=== PATIENT | female | born 1995 | race Caucasian/White ===

== ENCOUNTER 2022-04-08 14:14 | Observation (INO) | payer OTHER ==
[2022-04-08 15:00] VITALS: BP 118/59; PULSE 87; O2SAT 99
[2022-04-08 15:52] LABS: Appearance SLIGHTLY CLOUDY (CLEAR); Bilirubin NEGATIVE (NEGATIVE); Dipstick done @ ? MAIN LAB; Glucose NEGATIVE (NEGATIVE); Ketones NEGATIVE (NEGATIVE); Nitrite NEGATIVE (NEGATIVE); Ph 7.5 (5-6); Protein,Urine Dip NEGATIVE (Negative); RBC NEGATIVE Ery/ul (0-5); Specific Gravity 1.015 (1.005-1.025); Urobilinogen 0.2 mg/dL (0-1)
[2022-04-08 15:56] LABS: Bacteria RARE /HPF (NEGATIVE); Epithelial Cells RARE /HPF (FEW)
[2022-04-08 15:59] LABS: Urine Cultured Indicated? NO
--- NOTE | 2022-04-08 17:09 | XRAY ---
Indication: Pain. Evaluate cervical length. Limited transvaginal OB ultrasound demonstrates single intrauterine with heart rate 149 BPM. Closed cervix with cervical length 4.2 cm.
== END 2022-04-08 17:10 | disposition home or self-care (01) ==
LOC: OB 14:14
PROVIDERS: ADMIT Obstetrics & Gynecology; ATTEND Obstetrics & Gynecology
DX: Z34.82 Encounter for supervision of other normal pregnancy, second trimester (principal); Z3A.20 20 weeks gestation of pregnancy
CPT/HCPCS: 76815; 81015; G0378

== ENCOUNTER 2022-06-07 12:34 | Observation (INO) | payer OTHER ==
[2022-06-07 13:18] VITALS: BP 123/70; PULSE 99; O2SAT 98
[2022-06-07 14:33] LABS: Amphetamine,Urine NEGATIVE (NEGATIVE); Barbiturate,Urine NEGATIVE (NEGATIVE); Benzodiazepine,Urine NEGATIVE (NEGATIVE); Cocaine,Urine NEGATIVE (NEGATIVE); Methadone,Urine NEGATIVE (NEGATIVE); Opiate,Urine NEGATIVE (NEGATIVE); PCP,Urine NEGATIVE (NEGATIVE); THC,Urine NEGATIVE (NEGATIVE)
[2022-06-07] MEDS ORDERED: Dulcolax 10 MG SUPP PR ONE (15:25)
== END 2022-06-07 15:56 | disposition home or self-care (01) ==
LOC: OB 12:34
PROVIDERS: ADMIT Obstetrics & Gynecology; ATTEND Obstetrics & Gynecology
DX: Z34.83 Encounter for supervision of other normal pregnancy, third trimester (principal); Z3A.28 28 weeks gestation of pregnancy
CPT/HCPCS: 80307; G0378; A9270-GY

== ENCOUNTER 2022-08-04 20:34 | Observation (INO) | payer OTHER ==
[2022-08-04 21:15] LABS: Appearance Cloudy (Clear); Bacteria None Seen /HPF (None Seen); Bilirubin Negative (Negative); Blood Negative (Negative); Epithelial Cells None Seen /HPF (None Seen); Glucose, Urine Negative (Negative); Hyaline Casts NONE SEEN /LPF (0-2); Ketones Negative (Negative); Leukocyte Esterase Negative (Negative); Nitrite Negative (Negative); Protein,Urine Dip Negative (Negative); RBC 0-2 /HPF (0-5); Specific Gravity <=1.005 (1.005-1.030); Urobilinogen 0.2 mg/dL (0.2); WBC 0-2 /HPF (0-5)
[2022-08-04 21:16] LABS: ADD URINE CULTURE? NO (NO)
[2022-08-04 21:26] LABS: Amphetamine,Urine NEGATIVE (NEGATIVE); Barbiturate,Urine NEGATIVE (NEGATIVE); Benzodiazepine,Urine NEGATIVE (NEGATIVE); Cocaine,Urine NEGATIVE (NEGATIVE); Methadone,Urine NEGATIVE (NEGATIVE); Opiate,Urine NEGATIVE (NEGATIVE); PCP,Urine NEGATIVE (NEGATIVE); THC,Urine NEGATIVE (NEGATIVE)
[2022-08-04 23:00] VITALS: BP 123/65; PULSE 74; O2SAT 99
== END 2022-08-04 22:37 | disposition home or self-care (01) ==
LOC: OB 20:34
PROVIDERS: ADMIT Obstetrics & Gynecology; ATTEND Obstetrics & Gynecology
DX: Z34.83 Encounter for supervision of other normal pregnancy, third trimester (principal); Z3A.37 37 weeks gestation of pregnancy
CPT/HCPCS: 80307; 81001; G0378; G0379

== ENCOUNTER 2022-08-17 06:45 | Inpatient (IN) | payer OTHER ==
[2022-08-17] MEDS ORDERED: CORTISONE 1% CREAM TP PRN (16:56)
[2022-08-17] MEDS ORDERED: Ambien 10 MG PO PRN (16:56)
[2022-08-17] MEDS ORDERED: Anucort-HC SUPPOSITORY PR PRN (16:56)
[2022-08-17] MEDS ORDERED: Nubain 10 MG/ML IV PRN (16:57)
[2022-08-17] MEDS ORDERED: TYLENOL EXTRA STRENGTH 500 MG PO PRN (16:57)
[2022-08-17] MEDS ORDERED: Ephedrine Sulfate 50 MG/ML IV PRN (16:57)
[2022-08-17] MEDS ORDERED: XYLOCAINE 1% HCL 20 ML MDV IJ PRN (16:57)
[2022-08-17] MEDS ORDERED: Dermoplast Spray TP PRN (16:57)
[2022-08-17] MEDS ORDERED: STADOL 2 MG IV PRN (16:57)
[2022-08-17] MEDS ORDERED: LANSINOH 40 GM TOP PRN (16:58)
[2022-08-17] MEDS ORDERED: TUCKS TP PRN (16:58)
[2022-08-17] MEDS ORDERED: Dulcolax 10 MG SUPP PR PRN (16:58)
[2022-08-17] MEDS ORDERED: Mylicon 80MG PO PRN (16:58)
[2022-08-17] MEDS ORDERED: Lactated Ringers 1,000 ML IV ONE (17:00)
[2022-08-17] MEDS ORDERED: PITOCIN 30 UNITS/ LR 500 ML 30 UNITS/500 ML PLAST..BAG IV SCH (17:00)
[2022-08-17] MEDS ORDERED: FENTANYL 2 MCG-BUPIV 0.125%-NS 250 ML Epidur 250 ML EPIDURAL SCH (17:00)
[2022-08-17] MEDS: Lactated Ringers 1,000 ML IV SCH ×2 (18:10→22:08)
[2022-08-17] MEDS: PITOCIN 30 UNITS/ LR 500 ML 30 UNITS/500 ML PLAST..BAG IV SCH (18:10)
[2022-08-17 19:17] LABS: Amphetamine,Urine NEGATIVE (NEGATIVE); Barbiturate,Urine NEGATIVE (NEGATIVE); Benzodiazepine,Urine NEGATIVE (NEGATIVE); Cocaine,Urine NEGATIVE (NEGATIVE); Methadone,Urine NEGATIVE (NEGATIVE); Opiate,Urine NEGATIVE (NEGATIVE); PCP,Urine NEGATIVE (NEGATIVE); THC,Urine NEGATIVE (NEGATIVE)
[2022-08-17] MEDS: MOTRIN 400 MG PO PRN (20:26)
[2022-08-17 20:43] LABS: Absolute Neutrophil Ct (ANC) 8.89 x10^3/uL (1.4-6.9); BASOPHIL % 0.4 % (0.0-0.4); Basophil (Absolute #) 0.05 x10^3/uL (0-0.4); Eosinophil % 0.3 % (0.00-5.0); Eosinophil (Absolute #) 0.03 x10^3/uL (0-0.5); Hematocrit 32.6 % (35-47); Hemoglobin 9.8 g/dL (12.0-16.0); IMMATURE GRAN # 0.07 x10^3u/L (0.00-0.03); IMMATURE GRAN % 0.6 % (0.00-0.4); Lymphocytes % 11.5 % (24.0-44.0); Mean Cell Volume 79.9 fL (78-100); Mean Corpuscular Hgb Concent. 30.1 g/dL (32-36); Mean Platelet Volume 12.4 fL (7.5-11.0); Monocyte (Absolute #) 0.97 x10^3/uL (0.0-1.3); Monocytes % 8.6 % (0.0-12.0); Neutrophil % 78.6 % (36.0-66.0); Platelet Count 247 x10^3/uL (150-450); Red Blood Count 4.08 x10^6/uL (4.1-5.4); Red Cell Distribution Width 14.9 % (11.5-14.0); White Blood Count 11.3 x10^3/uL (4.0-10.5)
[2022-08-17 20:57] LABS: ABO TYPING O; Antibody Screen NEGATIVE (NEGATIVE); RH TYPING POSITIVE
[2022-08-17] MEDS ORDERED: Tums EX 750 MG ONE (22:18)
[2022-08-17] MEDS ORDERED: Tums EX 750 MG PO PRN (22:19)
[2022-08-18] MEDS: Zofran 4 MG/2 ML VIAL IV PRN ×2 (05:11→09:44)
[2022-08-18] MEDS: Lactated Ringers 1,000 ML IV SCH ×2 (06:36→10:38)
[2022-08-18] MEDS ORDERED: Sodium Chloride 0.9% 1000 ML 1,000 ML ONE (09:32)
[2022-08-18] MEDS ORDERED: Reglan 10 MG/2 ML IV ONE (11:12)
[2022-08-18] MEDS ORDERED: Adacel Vial IM ONE (13:00)
[2022-08-18] MEDS: MOTRIN 400 MG PO PRN (23:04)
[2022-08-18] MEDS: Ambien 5 MG Tablet PO PRN (23:08)
[2022-08-19 06:51] LABS: Hematocrit 27.4 % (35-47); Hemoglobin 8.3 g/dL (12.0-16.0); Mean Corpuscular Hemoglobin 23.9 pg (26-32); Mean Corpuscular Hgb Concent. 30.3 g/dL (32-36); Mean Platelet Volume 10.9 fL (7.5-11.0); Platelet Count 170 x10^3/uL (150-450); Red Blood Count 3.47 x10^6/uL (4.1-5.4); Red Cell Distribution Width 15.2 % (11.5-14.0); White Blood Count 11.4 x10^3/uL (4.0-10.5)
--- NOTE | 2022-08-19 07:47 | PCM.NOTE ---
Date and Time: 08/19/22 0746 Subjective Assessment: sp ppd 1 pt currently feeling well and denies complaints vss afebrile abd; soft uterus; firm lochia; mild a/p sp ppd 1 dc home tomorrow fu office in 3 wks OBJECTIVE DATA Vital Signs: Vital Signs - 24 hr Temp Pulse Resp BP BP Pulse Ox 08/19/22 04:00 98.3 F 80 16 115/56 96 08/19/22 02:00 98.2 F 08/19/22 00:00 97.8 F 84 16 128/68 08/18/22 20:00 98.6 F 64 16 119/58 119/58 98 08/18/22 16:50 98.0 F 80 20 131/73 98 08/18/22 15:50 98.0 F 80 20 119/57 98 08/18/22 15:20 98.0 F 82 20 116/63 98 08/18/22 15:00 98.0 F 71 20 131/74 08/18/22 14:50 98.0 F 71 20 131/74 98 08/18/22 14:35 98.0 F 75 20 130/70 98 08/18/22 14:20 98.0 F 81 20 133/74 98 08/18/22 14:10 98.0 F 80 20 98 08/18/22 14:05 98.0 F 93 H 20 127/66 99 08/18/22 13:50 98.0 F 86 18 124/56 99 08/18/22 13:45 98.0 F 88 20 141/91 98 08/18/22 13:30 98.0 F 72 20 132/65 98 08/18/22 13:15 98.0 F 66 20 124/66 98 08/18/22 13:00 98.0 F 73 20 125/70 98 08/18/22 12:45 98.0 F 62 20 120/69 98 08/18/22 12:30 98.0 F 68 20 121/61 98 08/18/22 12:15 98.0 F 70 20 117/60 98 08/18/22 12:00 97.9 F 83 20 117/59 98 08/18/22 11:45 97.9 F 83 20 117/59 98 08/18/22 11:30 97.9 F 86 20 122/57 98 08/18/22 11:15 97.9 F 77 20 121/65 98 08/18/22 11:00 97.9 F 76 20 123/69 133/73 98 08/18/22 10:45 97.9 F 75 20 120/70 98 08/18/22 10:30 97.9 F 81 20 128/69 98 08/18/22 10:15 97.9 F 100 H 20 126/66 99 08/18/22 10:00 97.9 F 100 H 20 126/66 99 08/18/22 09:45 97.9 F 77 20 120/67 99 08/18/22 09:30 97.9 F 91 H 20 100/55 99 08/18/22 09:14 97.9 F 88 20 117/57 99 08/18/22 09:00 98.0 F 95 H 20 133/69 98 08/18/22 08:45 98.0 F 81 20 119/59 98 08/18/22 08:30 97.9 F 88 20 117/57 98 08/18/22 08:15 97.9 F 88 20 117/57 99 08/18/22 08:00 97.9 F 81 20 122/69 99 Pain Assessment - Last Documented Pain Intensity [Bilateral 0 Lower] Pain Intensity 0 Pain Scale Used 0-10 Pain Scale Intake and Output: Intake & Output 08/16/22 08/17/22 08/18/22 08/19/22 11:59 11:59 11:59 11:59 Intake Total 5797 300 Output Total 75 1200 Balance 5722 -900 Weight 79.379 kg Lab Results: Lab Results-Last 24 Hours 08/19/22 Range/Units 06:47 WBC 11.4 H (4.0-10.5) x10^3/uL RBC 3.47 L (4.1-5.4) x10^6/uL Hgb 8.3 L (12.0-16.0) g/dL Hct 27.4 L (35-47) % MCV 79.0 (78-100) fL MCH 23.9 L (26-32) pg MCHC 30.3 L (32-36) g/dL RDW 15.2 H (11.5-14.0) % Plt Count 170 (150-450) x10^3/uL MPV 10.9 (7.5-11.0) fL Multi-Disciplinary Progress Notes: Multi-Disciplinary Progress Notes 08/18/22 10:23 Case Management Note by Mayuri Zhang RECEIVED REFERRAL FOR [facility]- THEIR NAVIGATOR RECEIVED THE REFERRAL WELL AND WILL FOLLOWUP BUT SHE IS ON VACATION THIS WEEK. RU STATED SHE WOULD CALL PATIENT D/T NAVIGATOR BEING OUT. Initialized on 08/18/22 10:23 - END OF NOTE Assessment/Plan (1) Vaginal delivery Current Visit: Yes Status: Acute Code(s): O80 - ENCOUNTER FOR FULL-TERM UNCOMPLICATED DELIVERY
--- NOTE | 2022-08-19 07:51 | PCM.DS ---
Discharge Summary Date of Admission: 08/18/22 06:45 Admitting Physician: RAJESH SALCIDO DO Consults: Consults on Case 08/17/22 19:10 Social Determinants of Health Referal ONCE 08/18/22 06:00 Notify Anesthesia Provider PRN 08/18/22 19:21 Navigation ONCE Primary Care Provider: BRIANNE MEJIA Allergies Allergies No Known Drug Allergies Allergy (Verified 04/08/22 15:24) Hospital Summary - Hospital Course Hospital Course: 26 yo sp on august 18 was admitted on august 17 for induction at 39 wks gestation. pt currently delivered live baby girl without complication and during period did well and at this time stable for discharge on august 20. pt had stable hgb level and was advised to fu in office in 3 wks. all questions answered to her satisfaction. - Vitals & Intake/Output Vital Signs: Vital Signs Temperature 98.3 F 08/19/22 04:00 Pulse Rate 80 08/19/22 04:00 Respiratory Rate 16 08/19/22 04:00 Blood Pressure 115/56 08/19/22 04:00 O2 Sat by Pulse Oximetry 96 08/19/22 04:00 Intake & Output: Intake & Output 08/16/22 08/17/22 08/18/22 08/19/22 11:59 11:59 11:59 11:59 Intake Total 5797 300 Output Total 75 1200 Balance 5722 -900 Weight 79.379 kg - Lab Result Diagrams: 08/19/22 06:47 Lab Results-Last 24 Hrs: Lab Results-Last 24 Hours 08/19/22 Range/Units 06:47 WBC 11.4 H (4.0-10.5) x10^3/uL RBC 3.47 L (4.1-5.4) x10^6/uL Hgb 8.3 L (12.0-16.0) g/dL Hct 27.4 L (35-47) % MCV 79.0 (78-100) fL MCH 23.9 L (26-32) pg MCHC 30.3 L (32-36) g/dL RDW 15.2 H (11.5-14.0) % Plt Count 170 (150-450) x10^3/uL MPV 10.9 (7.5-11.0) fL Micro Results-Entire Visit: Microbiology 08/18/22 09:48 Urine Culture - Preliminary Urine, Indwelling Catheter NO GROWTH TO DATE Final Diagnosis/Problem List - Final Discharge Diagnosis/Problem (1) Vaginal delivery Current Visit: Yes Status: Acute Code(s): O80 - ENCOUNTER FOR FULL-TERM UNCOMPLICATED DELIVERY - Discharge Disposition: Home, Self-Care Condition: Stable Prescriptions: No Action Vit No.179/Iron/Folic [ Tablet] 1 each PO DAILY Sertraline HCl 50 mg [Zoloft 50 mg Tablet] 50 mg PO DAILY Follow up with: BRIANNE MEJIA [Primary Care Provider] - RAJESH SALCIDO DO [ACTIVE STAFF] - 3 weeks
[2022-08-19] MEDS: MOTRIN 400 MG PO PRN ×2 (08:11→22:25)
[2022-08-19] MEDS ORDERED: [UNRECOGNIZED DRUG - REMARK] PO SCH (10:00)
[2022-08-19] MEDS: ZOLOFT 50 MG TABLET PO SCH ×2 (10:44→13:44)
[2022-08-19] MEDS: Docusate Sodium 100 MG PO SCH ×5 (10:44→22:23)
[2022-08-19] MEDS: THERAGRAN MULTIVITAMIN PO SCH ×2 (10:44→13:44)
[2022-08-19] MEDS: FERREX 150 PO SCH ×3 (10:45→13:43)
[2022-08-19 15:46] LABS: HBsAg Screen Negative (Negative)
[2022-08-19] MEDS ORDERED: Pepto-Bismol PO PRN ×2 (16:00→16:30)
[2022-08-19] MEDS: Ambien 5 MG Tablet PO PRN (22:28)
[2022-08-19] MEDS: PITOCIN 30 UNITS/ LR 500 ML 30 UNITS/500 ML PLAST..BAG IV SCH ×2 (22:57→22:58)
[2022-08-19] MEDS: Lactated Ringers 1,000 ML IV SCH ×2 (22:58→22:59)
[2022-08-20] MEDS: MOTRIN 400 MG PO PRN (08:29)
[2022-08-20] MEDS: Docusate Sodium 100 MG PO SCH (08:30)
[2022-08-20] MEDS: THERAGRAN MULTIVITAMIN PO SCH (08:30)
[2022-08-20] MEDS: FERREX 150 PO SCH (08:30)
[2022-08-20] MEDS: ZOLOFT 50 MG TABLET PO SCH (08:32)
[2022-08-20 10:06] VITALS: BP 119/67; PULSE 83; O2SAT 100
== END 2022-08-20 12:52 | disposition home or self-care (01) | DRG 807 ==
LOC: OB 06:45 → OBSVTOIN 08-18 06:45
PROVIDERS: ADMIT Obstetrics & Gynecology; ATTEND Obstetrics & Gynecology
PROC: 10E0XZZ Delivery of Products of Conception, External Approach (ICD-10-PCS; principal; 2022-08-18)
PROC: 0HQ9XZZ Repair Perineum Skin, External Approach (ICD-10-PCS; 2022-08-18)
DX: O70.0 First degree perineal laceration during delivery (principal); Z37.0 Single live birth; Z3A.39 39 weeks gestation of pregnancy; Z20.828 Contact with and (suspected) exposure to other viral communicable diseases
CPT/HCPCS: 36415; 59409; 80307; 84112; 85025; 85027; 86850; 86900; 86901; 87086; 87340; 90715; G0378; G0379; J2405; J2590; A9270-GY

== ENCOUNTER 2023-09-03 11:02 | Emergency (ER) | payer OTHER ==
--- NOTE | 2023-09-03 11:16 | ERPHSYRPT ---
- History of Present Illness Time Seen by Provider: 09/03/23 11:16 Historian: patient Exam Limitations: no limitations Physician History: This is a 27-year-old white female patient who does have a history of anxiety and depression and presents to the emergency department 1 day after being seen at [facility] emergency department for the same issue. That is, postoperative left lower quadrant abdominal pain. She has had no nausea vomiting symptoms. She has not had constipation or diarrhea. Patient underwent a laparoscopic appendectomy approximately 3 weeks ago. She has tenderness now in the area of the left lower quadrant port incision site. It worsens with bending twisting and moving. She has not had any fevers. At [facility], I reviewed those records from the emergency department. A KUB was performed which showed a nonobstructive bowel pattern. She also had a negative urinalysis and negative urine hCG. I also reviewed the laboratory data results. There is nothing acute on these study results I reviewed. Patient denies chest pain. Patient denies shortness of breath Timing/Duration: week(s) (Persistent postoperative pain left lower quadrant), worse Quality: sharpness, stabbing Abdominal Pain Onset Location: LLQ (In the area of the left lower quadrant laparoscopic port site) Pain Radiation: no radiation Severity of Pain-Max: mild (To moderate with movement) Severity of Pain-Current: mild (To moderate with movement) Modifying Factors: Improves With: movement (Worsens) Associated Symptoms: denies symptoms Previous symptoms: recently seen Allergies/Adverse Reactions: No Known Drug Allergies Allergy (Verified 09/03/23 11:08) Home Medications: Dextroamphetamine/Amphetamine [Adderall Xr 20 mg Capsule] 20 mg PO DAILY 09/03/23 [History] Travel Risk - International Travel Have you traveled outside of the country in past 3 weeks: No - Emerging Infectious Disease Are you exhibiting symptoms associated with any current EIDs: No - Review of Systems Constitutional: No Symptoms Eyes: No Symptoms Ears, Nose, & Throat: No Symptoms Respiratory: No Symptoms Cardiac: No Symptoms Abdominal/Gastrointestinal: Other (Abdominal wall pain in the area of the left lower quadrant laparoscopic port site) Genitourinary Symptoms: No Symptoms Musculoskeletal: No Symptoms Skin: No Symptoms Neurological: No Symptoms Psychological: No Symptoms Endocrine: No Symptoms Hematologic/Lymphatic: No Symptoms Immunological/Allergic: No Symptoms All Other Systems: Reviewed and Negative - Past Medical History Pertinent Past Medical History: Yes Neurological History: No Pertinent History ENT History: No Pertinent History Cardiac History: No Pertinent History Respiratory History: No Pertinent History Endocrine Medical History: No Pertinent History Musculoskeletal History: No Pertinent History GI Medical History: No Pertinent History History: No Pertinent History Psycho-Social History: Anxiety, Depression Female Reproductive Disorders: No Pertinent History - Past Surgical History Past Surgical History: No Neuro Surgical History: No Pertinent History Cardiac: No Pertinent History Respiratory: No Pertinent History Gastrointestinal: No Pertinent History Genitourinary: No Pertinent History Musculoskeletal: No Pertinent History Female Surgical History: No Pertinent History - Social History Smoking Status: Never smoker Exposure to second hand smoke: No Drug Use: none - Nursing Vital Signs Nursing Vital Signs: Initial Vital Signs Temperature 97.6 F 09/03/23 11:10 Pulse Rate 90 09/03/23 11:10 Respiratory Rate 12 09/03/23 11:10 Blood Pressure 135/78 09/03/23 11:10 O2 Sat by Pulse Oximetry 97 09/03/23 11:10 Pain Scale Pain Intensity 6 - Physical Exam General Appearance: no apparent distress, alert, anxiety Eye Exam: PERRL/EOMI, eyes nml inspection Ears, Nose, Throat Exam: normal ENT inspection, moist mucous membranes Neck Exam: normal inspection, non-tender, supple, full range of motion Respiratory Exam: airway intact, No chest tenderness, No respiratory distress Gastrointestinal/Abdomen Exam: soft, normal bowel sounds, tenderness (Left lower quadrant in the area of the left lower quadrant port site to palpation), guarding (To palpation left lower quadrant port site), other (No redness no drainage no evidence of infection at any of the port sites examined.), No rebound Pelvic Exam: not done Rectal Exam: not done Back Exam: normal inspection, normal range of motion, No CVA tenderness, No vertebral tenderness Extremity Exam: normal inspection, normal range of motion, pelvis stable Neurologic Exam: alert, oriented x 3, cooperative, 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, normal mood/affect, nml cerebellar function, nml station & gait, sensation nml Skin Exam: normal color, warm, dry Lymphatic Exam: No adenopathy SpO2 Interpretation: normal O2 Delivery: Room Air - Course Nursing assessment & vital signs reviewed: Yes Ordered Tests: Active Orders 24 hr Category Date Time Status ABDOMEN AND PELVIS W/0 CONTRAS [CT] Stat Exams 09/03/23 11:29 Completed - Progress Progress: unchanged Progress Note: 09/03/23 11:47 My medical decision making and the assignment of low to moderate complexity to this patient's medical issue today is based on review of the patient's past medical history, review the patient's outside emergency department radiographic and laboratory studies, review the patient's medication list, review the patient drug allergy list, history present illness and physical findings on examination. The workup in this patient includes CT scan of the abdomen pelvis without contrast. Since the labs obtained and resulted are less than 24 hours old, I will not repeat the urinalysis, urine test or laboratory data blood work. Differential diagnosis includes postoperative abdominal wall pain, subcutaneous abscess, intra-abdominal infection and or process. Abdominal wall hematoma. 09/03/23 12:45 CT scan of the abdomen pelvis without contrast was interpreted by the radiologist and I reviewed the impression. The impression states minute right renal nonobstructing calculus. There is fat stranding at the left anterior abdominal wall. This could be due to trauma, previous surgery or infection. There is no free air and no free fluid present. There is no mention of abdominal wall abscess. Counseled pt/family regarding: diagnosis, need for follow-up, rad results Medical Desision Making - Independent Historian Additional History obtained from: Spouse - Diagnostic Testing Diagnostic test were ordered, analyzed, and reviewed by me: Yes Radiological Interpretation: Reviewed by me, Teleradiologist Report - Risk of complications The pt has a mod risk of morbidity or mortality based on: Need for prescription drug management - Departure Departure Disposition: Home Clinical Impression: Abdominal wall pain in left lower quadrant Condition: Stable Critical Care Time: No Referrals: BRIANNE MEJIA [Primary Care Provider] - Follow up/PCP as directed Additional Instructions: Take your medications as prescribed. May use ice pack to tender area on the abdominal wall. Stop your narcotic medicine and use ibuprofen and Tylenol for pain control. Call your surgeon and your primary care provider on 09/05/2023, to make arrangements for follow-up appointment and for further evaluation in the ne xt 5 to 7 days. Prescriptions: Cephalexin Mh 500 mg [Keflex 500 mg] 500 mg PO TID #21 cap
[2023-09-03 11:21] VITALS: TEMP 97.6
--- NOTE | 2023-09-03 12:39 | XRAY ---
CLINICAL HISTORY: Left lower quadrant ABD pain COMPARISON: None. TECHNIQUE: CT of the abdomen and pelvis was performed with axial images as well as sagittal and coronal reconstruction images without intravenous contrast. DLP 1259.35 mGy*cm. One of the following dose reduction techniques was utilized for this exam: Automated exposure control, adjustment of the mA and/or kV according to patient size, and use of iterative reconstruction. FINDINGS: Scanned chest cuts revealed a minute right lower calcific pulmonary nodule that could be a granuloma. The liver is normal in size, and morphology and appears unremarkable with no intrahepatic or extrahepatic bile duct dilation. Unremarkable appearing gallbladder with no stone wall thickening or pericholecystic inflammatory changes or fluid. Unremarkable appearing pancreas. No pancreatic mass or ductal dilatation is seen. A few minute calcific splenic foci could be granulomas. The adrenal glands are normal. The kidneys appear unremarkable with no cysts, masses, or hydronephrosis. With tiny calculus noted in the right kidney measures 2.47 x 4.44 mm and its attenuation is 252 HU noted in the lower calyx. The ureters are normal with no stones. Unremarkable abdominal aorta without specific evidence of aneurysm or dissection. The stomach appears unremarkable. Unremarkable appearing duodenum. Small Bowel and colon are non-distended with no abnormality No free air and no ascites. No free intraperitoneal air is seen. No evidence of acute appendicitis. The bladder is unremarkable with no stones. Both ovaries are unremarkable. The uterus is normal with the IUD in place. There is fat stranding at the left lower anterior abdominal wall. Mutliple pelvic calcific pheleboli. No other bony abnormality was detected. IMPRESSION: 1. Minute right renal non-obstructive calculus. 2. A few minute calcific splenic foci could be granulomas. 3. Fat stranding at the left anterior abdominal wall could be due to previous trauma/operation/infection. Clinical correlation is advised. 4. Scanned chest cuts revealed a minute right lower calcific pulmonary nodule that could be a granuloma. 5. Otherwise, Unremarkable CT of the abdomen and pelvis. 6. No evidence of acute appendicitis. Electronically Signed by: Jordan Hernández MD. (09/03/2023 12:35:08 EDT)
[2023-09-03 12:49] VITALS: BP 116/70; PULSE 79; RESP 22; O2SAT 98
== END 2023-09-03 12:57 | disposition home or self-care (01) ==
LOC: ED 11:02
DX: R10.32 Left lower quadrant pain (principal); G89.18 Other acute postprocedural pain; Z79.899 Other long term (current) drug therapy
CPT/HCPCS: 74176; 99282